=== PATIENT | male | born 1975 | race Caucasian/White ===

== ENCOUNTER 2017-12-30 13:46 | Emergency (ER) | payer OTHER, MEDICAID ==
[~2017-12-30] VITALS: Ht 180.3 cm; Wt 111.0 kg
[~2017-12-30 13:46] MED LIST: IBUP800 PO; OMEP40CA2 PO
[2017-12-30] MEDS ORDERED: IBUP1TAB7 PO ×2 (13:52→14:10)
[2017-12-30] MEDS ORDERED: OMEP40CA2 PO (13:52)
[2017-12-30 13:53] VITALS: BP 124/72; PULSE 82; RESP 16; TEMP 98; O2SAT 98
[2017-12-30] MEDS ORDERED: ROBA500T PO (14:10)
--- NOTE | 2017-12-30 14:11 | PD ---
HPI Chief Complaint: Back/ Neck Pain or Injury Time Seen by Provider: 14:01 Travel History International Travel<30 days: No Contact w/Intl Traveler<30days: No Traveled to known affect area: No History of Present Illness HPI 42-year-old male with back pain 3 days. He reports the pain localizes in the right low back radiates into the buttocks and down the leg. No injury or trauma. He reports this is "sciatica". He has had pain like this before and is usually treated with a "shot from the ER". Denies fever, incontinence, saddle anesthesia, altered sensation or weakness of extremities. No history of IVDA. Symptom severity is moderate. Aggravated by movement and slightly relieved with rest. PFSH Past Medical History Diminished Hearing: No GERD: Yes Musculoskeletal: Yes Immunizations Current: Yes Tetanus Vaccination: Unknown Past Surgical History Cholecystectomy: Yes (12/2014) Social History Alcohol Use: No Tobacco Use: Yes (vapor cig) Substance Use: No Allergies-Medications (Allergen,Severity, Reaction): Coded Allergies: penicillin G (Unverified Allergy, Unknown, 12/30/17) Reported Meds & Prescriptions Reported Meds & Active Scripts Active Reported Ibuprofen 800 Mg Tab 800 Mg PO BID Omeprazole 40 Mg Cap 40 Mg PO DAILY Review of Systems Except as stated in HPI: all other systems reviewed are Neg General / Constitutional: No: Fever Eyes: No: Visual changes HENT: No: Headaches Cardiovascular: No: Chest Pain or Discomfort Respiratory: No: Shortness of Breath Gastrointestinal: No: Abdominal Pain Genitourinary: No: Dysuria Musculoskeletal: No: Pain Physical Exam Narrative GENERAL: Alert and well-appearing 42-year-old male SKIN: Warm and dry. HEAD: Normocephalic. EYES: No injection or drainage. NECK: Supple CARDIOVASCULAR: Regular rate and rhythm RESPIRATORY: Breath sounds equal bilaterally. No accessory muscle use. GASTROINTESTINAL: Abdomen soft, non-tender, nondistended. MUSCULOSKELETAL: No cyanosis, or edema. Mild positive straight leg raise at 45 on the right. Normal strength and sensation in the lower extremities. Ambulates with a steady gait. BACK: + Tenderness over the right sacroiliac joint and into the right gluteal. No midline spine tenderness. Without obvious deformity. No CVA tenderness. Data Data Last Documented VS Vital Signs Date Time Temp Pulse Resp B/P (MAP) Pulse Ox O2 Delivery O2 Flow Rate FiO2 12/30/17 13:53 98.0 82 16 124/72 (89) 98 Orders Orders Ketorolac Inj (Toradol Inj) (12/30/17 14:15) [facility] Medical Decision Making Medical Screen Exam Complete: Yes Emergency Medical Condition: Yes Differential Diagnosis Sciatica, lumbar strain, herniated disc Narrative Course 42-year-old male here with low back pain. He has a normal neurologic exam. This is consistent with sciatica. He was given a shot of Toradol and reports symptom improvement. He is stable and ready for discharge. Diagnosis Primary Impression: Sciatica Qualified Codes: M54.31 - Sciatica, right side Patient Instructions: General Instructions Departure Forms: Tests/Procedures Scripts Methocarbamol (Robaxin) 500 Mg Tab 500 MG PO TID for Muscle Spasm, #12 TAB 0 Refills Prov: Kelly Guajardo 12/30/17 Ibuprofen (Ibuprofen) 800 Mg Tab 800 MG PO Q6HR Y for PAIN, #40 TAB 0 Refills Prov: Kelly Guajardo 12/30/17 Disposition: 01 DISCHARGE HOME Condition: Stable Kelly Guajardo Dec 30, 2017 14:11
[2017-12-30] MEDS ORDERED: KETOROLAC TROMETHAMINE 60 MG/2 ML (IM) VIAL IM ONE (14:15)
== END 2017-12-30 14:48 | disposition home or self-care (01) ==
LOC: PHEFT 13:46
DX: M54.31 Sciatica, right side (principal); K21.9 Gastro-esophageal reflux disease without esophagitis; F17.290 Nicotine dependence, other tobacco product, uncomplicated; Z79.899 Other long term (current) drug therapy; Z88.0 Allergy status to penicillin
CPT/HCPCS: 96372; 99283; J1885